=== PATIENT | female | born 1945 | race Caucasian/White ===

== ENCOUNTER → 2017-09-05 | Outpatient (CLI) | payer MEDICARE, OTHER ==
[~2017-09-05] MED LIST: CELE-1 PO; CEP500 PO; LISI-368 PO; VITAMINS
--- NOTE | 2017-09-10 09:31 | RADIOLOGY IMAGING REPORT ---
[place] [facility] [place] NAME: ROJAS MEDINA : [id number] MR: [id number] V: [id number] EXAM DATE: [id number] ORDERING PHYSICIAN: MANUEL MORELAND TECHNOLOGIST: Tsering Kolb PROCEDURE:BILATERAL DIGITAL SCREENING MAMMOGRAM WITH CAD AND 3D BREAST TOMOSYNTHESIS. COMPARISON:08/29/16 and priors back to 06/23/14. INDICATIONS:ROUTINE SCREENING. FINDINGS: The breasts have scattered fibroglandular parenchymal densities. There are no mammographic findings concerning for malignancy. No significant interval change. DIAGNOSTIC CATEGORY 1--NEGATIVE. RECOMMENDATIONS: ROUTINE MAMMOGRAM AND CLINICAL EVALUATION. IMPRESSION: Bi-RADS 1: Negative. RECOMMENDATION: Followup screening mammogram in one year. Dictated by: Jordan Laguna on 09/08/2017 at 9:21 Transcribed by: LALO on 09/08/2017 at 22:21 Approved by: Angela Dumas M.D. on 09/10/2017 at 8:49 [facility]
== END ==
LOC: MAMO 04:28
PROVIDERS: ATTEND Obstetrics & Gynecology
DX: Z12.31 Encounter for screening mammogram for malignant neoplasm of breast (principal)
CPT/HCPCS: 77063; 77067

== ENCOUNTER → 2018-10-19 | Outpatient (CLI) | payer MEDICARE, OTHER ==
--- NOTE | 2018-10-21 13:37 | RADIOLOGY IMAGING REPORT ---
FACILITY: [facility] - [place] PATIENT NAME: ROJAS MEDINA : [id number] MR: [id number] V: [id number] EXAM DATE: [id number] ORDERING PHYSICIAN: MANUEL MORELAND TECHNOLOGIST: Sandra Hackett PROCEDURE:BILATERAL DIGITAL SCREENING MAMMOGRAM WITH CAD ASSISTED INTERPRETATION & 3D TOMOSYNTHESIS COMPARISON:Prior mammograms 09/05/17, 08/29/16, 08/07/16, 07/24/15, 07/14/15, 06/23/14. INDICATIONS:screening FINDINGS: The breasts are heterogeneously dense which can obscure small masses. The parenchymal pattern has remained stable allowing for difference in mammographic technique & patient positioning. DIAGNOSTIC CATEGORY 1--NEGATIVE. RECOMMENDATIONS: ROUTINE MAMMOGRAM AND CLINICAL EVALUATION. IMPRESSION: BIRADS 1: Negative. No significant abnormality is seen. Dictated by: Angela Dumas M.D. on 10/19/2018 at 17:38 Transcribed by: EBONY on 10/20/2018 at 8:54 Approved by: Angela Dumas M.D. on 10/21/2018 at 13:36 [facility]
== END ==
LOC: MAMO 00:54
PROVIDERS: ATTEND Obstetrics & Gynecology
DX: Z12.31 Encounter for screening mammogram for malignant neoplasm of breast (principal)
CPT/HCPCS: 77063; 77067